=== PATIENT | male | born 1950 | race American Indian/Alaskan Native ===

== ENCOUNTER 2017-03-22 12:15 | Day surgery (SDC) | payer OTHER ==
[~2017-03-22 12:15] MED LIST: ANCEF/STERILE WATER 2 GM/20 ML IV NR
--- NOTE | 2017-03-22 12:42 | Anesthesia Consultation ---
Anesthesia Consult and Med Hx Date of service: 03/22/17 - Airway Anesthetic Teeth Evaluation: Good ROM Head & Neck: Adequate Mental/Hyoid Distance: Adequate Mallampati Class: Class III Intubation Access Assessment: Probably Good - Pulmonary Exam CTA: Yes - Cardiac Exam Cardiac Exam: RRR - Pre-Operative Health Status ASA Pre-Surgery Classification: ASA2 Proposed Anesthetic Plan: General - Pulmonary Hx Smoking: Yes (STOPPED X 25 YRS- 1/4PPD X 10 YRS) Hx Sleep Apnea: No (RAFAEL PRE SCREEN HIGH RISK) - Cardiovascular System Hx Hypertension: Yes (X 10 YRS) - Central Nervous System Hx Back Pain: Yes Hx Psychiatric Problems: No - Other Systems Hx Cancer: No - Additional Comments Anesthesia Medical History Comments: NAC.
--- NOTE | 2017-03-22 12:42 | Anesthesia Day of Surgery ---
Anesthesia Day of Surgery - Day of Surgery Patient Examined: Yes Patient H&P Reviewed: Yes Patient is NPO: Yes
[2017-03-22] MEDS ORDERED: VERSED IV PRN (12:43)
[2017-03-22] MEDS ORDERED: NACL 0.9% 1000 ML 1,000 ML IV SCH (13:00)
[2017-03-22] MEDS ORDERED: PEPCID IV NR (13:00)
[2017-03-22] MEDS ORDERED: NACL BACTERIOSTATIC INFILTRATI ONE (13:27)
[2017-03-22] MEDS ORDERED: XYLOCAINE MPF 2% ONE (13:51)
[2017-03-22] MEDS ORDERED: DIPRIVAN 10 MG/ML IV ONE (13:51)
[2017-03-22] MEDS ORDERED: DECADRON ONE (13:52)
[2017-03-22] MEDS ORDERED: DILAUDID ONE (13:53)
[2017-03-22] MEDS ORDERED: ZOFRAN ONE (14:12)
[2017-03-22] MEDS ORDERED: WATER FOR IRRIG STERILE IR ONE (14:25)
--- NOTE | 2017-03-22 14:32 | Short Stay Summary ---
Short Stay Documentation Date of service: 03/22/17 - History H&P: obtained from office - Allergies and Medications Current Medications: Allergies No Known Allergies Allergy (Verified 12/20/14 19:12) Home Medications Medication Instructions Recorded Confirmed Last Taken Type Lisinopril 5 mg PO DAILY 12/20/14 03/20/17 03/22/17 09:00 History Verapamil ER [Calan SR] 180 mg PO DAILY 09/16/16 03/20/17 03/22/17 09:00 History oxyCODONE /ACETAMINOPHEN [Percocet 1 tab PO Q6HR PRN #20 tablet 09/18/16 Unknown Rx 5/325] Aspirin [Lo-Dose Aspirin EC] 81 mg PO DAILY 03/20/17 03/22/17 3 Weeks Ago History ~03/01/17 Brimonidine 0.15% [Alphagan P 1 drops OP Q8H 03/20/17 03/22/17 03/22/17 06:00 History 0.15%] Latanoprost 0.005% [Xalatan 0.005%] 1 drop OP QPM 03/20/17 03/22/17 03/21/17 History Zolpidem [Ambien] 10 mg PO QHS 03/20/17 03/22/17 03/21/17 History Active Medications Cefazolin Sodium (Ancef/Sterile Water 2 Gm/20 Ml) 2 gm IV PREOP NR Stop: 03/22/17 23:59 Famotidine (Pepcid) 20 mg IV PREOP NR Stop: 03/22/17 23:00 Last Admin: 03/22/17 13:43 Dose: 20 mg Sodium Chloride (Nacl 0.9% 1000 Ml) 1,000 mls @ 42 mls/hr IV DIRECT SATYA Last Admin: 03/22/17 13:40 Dose: 42 mls/hr Midazolam HCl (Versed) 2 mg IV PREOP PRN PRN Reason: Agitation Last Admin: 03/22/17 13:46 Dose: 2 mg - Brief post op/procedure progress note Date of procedure: 03/22/17 Pre-op diagnosis: hematuria Post-op diagnosis: other (BPH) Procedure: cysto, rpg Anesthesia: GETA Surgeon: AIDA LAWSON Estimated blood loss: minimal Condition: stable - Hospital course Hospital course: toby & manish on chart - Disposition Condition at discharge: Stable Disposition: DC-01 TO HOME OR SELFCARE Short Stay Discharge Plan Follow up with: PAVAN ARREAGA MD [Primary Care Provider] - 7 Days
[2017-03-22] MEDS ORDERED: DILAUDID IV PRN (15:00)
--- NOTE | 2017-03-22 15:06 | Operative Report ---
PREOPERATIVE DIAGNOSIS: Hematuria. POSTOPERATIVE DIAGNOSES: Hematuria, benign prostatic hypertrophy. PROCEDURES: Cystoscopy, bilateral retrograde pyelograms. SURGEON: Todd Pierson M.D. ANESTHESIA: General. ESTIMATED BLOOD LOSS: Minimal. FLUIDS: Crystalloid. COMPLICATIONS: No complications. INDICATIONS: This 66-year-old gentleman referred by Dr. Daphne Ricci for evaluation of hematuria. 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 DESCRIPTION OF PROCEDURE: The patient was taken to the operative suite and placed in the supine position. After adequate general anesthesia, he was placed in a dorsal lithotomy position and prepped and draped in a sterile fashion. Pancystourethroscopy was performed with a 22-Kenyan Storz cystoscope, no urethral abnormalities. His prostate displayed mild trilobar prostatic obstruction. His bladder, no tumors or stones were noted. Bilateral retrograde pyelograms were obtained with an 8 Kenyan Sai catheter and 8 mL of contrast. No filling defects or obstruction. Rectal exam was benign. The patient tolerated the procedure well. He was extubated and taken to the recovery room. He will go home on [facility] and [place] and follow up in the office. JOB# [id number] GLORIA/EMELIA
[2017-03-22] MEDS ORDERED: NORCO 5/325 PO PRN (16:02)
[2017-03-22 17:14] VITALS: BP 129/73
--- NOTE | 2017-03-22 17:24 | Post Anesthesia Evaluation ---
- Post Anesthesia Evaluation Patient Participated: Yes Airway Patent: Yes Stable Respiratory Function: Yes Nausea/Vomiting: No Temp > 96.8F: Yes Pain Manageable: Yes Adequeate Hydration: Yes Anesthesia Complications: No Block Receding Appropriately: Not Applicable Patient on Ventilator: No
--- NOTE | 2017-03-23 07:36 | Fluoroscopy Report ---
RETROGRADE PYELOGRAM: History: Microscopic hematuria. Findings: Fluoroscopy was provided by radiology during retrograde pyelogram by Dr. Pierson. A fluoroscopic images were captured. There is adequate filling of the ureters and intrarenal collecting systems with no filling defects or anatomic abnormalities identified. Impression: No abnormality identified.
== END 2017-03-22 16:42 | disposition home or self-care (01) ==
LOC: OR 12:15
PROVIDERS: ATTEND Urology
DX: N40.1 Benign prostatic hyperplasia with lower urinary tract symptoms (principal); N39.0 Urinary tract infection, site not specified; I10 Essential (primary) hypertension; K21.9 Gastro-esophageal reflux disease without esophagitis; Z79.82 Long term (current) use of aspirin; Z79.899 Other long term (current) drug therapy; E78.00 Pure hypercholesterolemia, unspecified; Z98.49 Cataract extraction status, unspecified eye; Z98.890 Other specified postprocedural states; Z87.891 Personal history of nicotine dependence
CPT/HCPCS: 52005; 74420; A4217; C1758; J0690; J1100; J1170; J2250; J2405; J2704; J7030; Q9967

== ENCOUNTER 2020-10-12 01:13 | Emergency (ER) | payer MEDICARE, OTHER ==
[2020-10-12] MEDS ORDERED: HYDROcodone/ACETAMINOPHEN 5-325 MG TAB PO ONE (01:54)
[2020-10-12 02:52] VITALS: BP 135/70
--- NOTE | 2020-10-12 06:56 | Emergency Department Report ---
ED ENT HPI - General Chief complaint: Dental/Oral Stated complaint: TOOTHACHE Time Seen by Provider: 10/12/20 06:36 Source: patient Mode of arrival: Ambulatory Limitations: No Limitations - History of Present Illness Initial comments: 69-year-old -[place] male presents emerged department complaining of a couple day history of waxing waning dental pain to the left lower molar region and a dull throbbing fashion worse with palpation and chewing. He is unsure if he might have damaged one of his date to feelings of previous dental work areas so wanted to get it checked out ports no fever chills or sweats does respond to medication but he was unable to sleep last night which was causing him to come to emergency department today. MD complaint: tooth pain Location: tooth # ([id number]) Severity: mild, moderate Quality: dull Consistency: constant Worsens with: eating Context- Dental: history of dental caries, poor dental care - Related Data Home Medications Medication Instructions Recorded Confirmed Last Taken Lisinopril 5 mg PO DAILY 12/20/14 03/20/17 03/22/17 09:00 Verapamil ER [Calan SR] 180 mg PO DAILY 09/16/16 03/20/17 03/22/17 09:00 Aspirin [Lo-Dose Aspirin EC] 81 mg PO DAILY 03/20/17 03/22/17 3 Weeks Ago ~03/01/17 Brimonidine 0.15% [Alphagan P 1 drops OP Q8H 03/20/17 03/22/17 03/22/17 06:00 0.15%] Latanoprost 0.005% [Xalatan 0.005%] 1 drop OP QPM 03/20/17 03/22/17 03/21/17 Zolpidem (Nf) [Ambien] 10 mg PO QHS 03/20/17 03/22/17 03/21/17 Previous Rx's Medication Instructions Recorded Last Taken Type oxyCODONE /ACETAMINOPHEN [Percocet 1 tab PO Q6HR PRN #20 tablet 09/18/16 Unknown Rx 5/325] Acetaminophen/Codeine [Tylenol #3] 1 tab PO Q6H PRN #15 tab 10/12/20 Unknown Rx Amoxicillin [Amoxicillin TAB] 875 mg PO BID #20 tablet 10/12/20 Unknown Rx Chlorhexidine Mouthwash [Peridex] 15 ml MM BID #1 bottle 10/12/20 Unknown Rx Lidocaine Viscous 2% 5 ml MM Q3H PRN #120 udc 10/12/20 Unknown Rx Allergies Allergy/AdvReac Type Severity Reaction Status Date / Time No Known Allergies Allergy Verified 10/12/20 01:54 ED Dental HPI - General Chief complaint: Dental/Oral Stated complaint: TOOTHACHE Time Seen by Provider: 10/12/20 06:36 Source: patient Mode of arrival: Ambulatory Limitations: No Limitations - Related Data Home Medications Medication Instructions Recorded Confirmed Last Taken Lisinopril 5 mg PO DAILY 12/20/14 03/20/17 03/22/17 09:00 Verapamil ER [Calan SR] 180 mg PO DAILY 09/16/16 03/20/17 03/22/17 09:00 Aspirin [Lo-Dose Aspirin EC] 81 mg PO DAILY 03/20/17 03/22/17 3 Weeks Ago ~03/01/17 Brimonidine 0.15% [Alphagan P 1 drops OP Q8H 03/20/17 03/22/17 03/22/17 06:00 0.15%] Latanoprost 0.005% [Xalatan 0.005%] 1 drop OP QPM 03/20/17 03/22/17 03/21/17 Zolpidem (Nf) [Ambien] 10 mg PO QHS 03/20/17 03/22/17 03/21/17 Previous Rx's Medication Instructions Recorded Last Taken Type oxyCODONE /ACETAMINOPHEN [Percocet 1 tab PO Q6HR PRN #20 tablet 09/18/16 Unknown Rx 5/325] Acetaminophen/Codeine [Tylenol #3] 1 tab PO Q6H PRN #15 tab 10/12/20 Unknown Rx Amoxicillin [Amoxicillin TAB] 875 mg PO BID #20 tablet 10/12/20 Unknown Rx Chlorhexidine Mouthwash [Peridex] 15 ml MM BID #1 bottle 10/12/20 Unknown Rx Lidocaine Viscous 2% 5 ml MM Q3H PRN #120 udc 10/12/20 Unknown Rx Allergies Allergy/AdvReac Type Severity Reaction Status Date / Time No Known Allergies Allergy Verified 10/12/20 01:54 ED Review of Systems ROS: Stated complaint: TOOTHACHE Other details as noted in HPI Comment: All other systems reviewed and negative ED Past Medical Hx - Past Medical History Previous Medical History?: No Hx Hypertension: Yes (X 10 YRS) Hx GERD: Yes Hx HIV: No - Surgical History Past Surgical History?: No - Social History Smoking Status: Never Smoker Substance Use Type: None - Medications Home Medications: Home Medications Medication Instructions Recorded Confirmed Last Taken Type Lisinopril 5 mg PO DAILY 12/20/14 03/20/17 03/22/17 09:00 History Verapamil ER [Calan SR] 180 mg PO DAILY 09/16/16 03/20/17 03/22/17 09:00 History oxyCODONE /ACETAMINOPHEN [Percocet 1 tab PO Q6HR PRN #20 tablet 09/18/16 03/20/17 Unknown Rx 5/325] Aspirin [Lo-Dose Aspirin EC] 81 mg PO DAILY 03/20/17 03/22/17 3 Weeks Ago History ~03/01/17 Brimonidine 0.15% [Alphagan P 1 drops OP Q8H 03/20/17 03/22/17 03/22/17 06:00 History 0.15%] Latanoprost 0.005% [Xalatan 0.005%] 1 drop OP QPM 03/20/17 03/22/17 03/21/17 History Zolpidem (Nf) [Ambien] 10 mg PO QHS 03/20/17 03/22/17 03/21/17 History Acetaminophen/Codeine [Tylenol #3] 1 tab PO Q6H PRN #15 tab 10/12/20 Unknown Rx Amoxicillin [Amoxicillin TAB] 875 mg PO BID #20 tablet 10/12/20 Unknown Rx Chlorhexidine Mouthwash [Peridex] 15 ml MM BID #1 bottle 10/12/20 Unknown Rx Lidocaine Viscous 2% 5 ml MM Q3H PRN #120 udc 10/12/20 Unknown Rx ED Physical Exam - General Limitations: No Limitations General appearance: alert, in no apparent distress - Head Head exam: Present: atraumatic, normocephalic - Eye Eye exam: Present: normal appearance, PERRL, EOMI Pupils: Present: normal accommodation - ENT ENT exam: Present: mucous membranes moist, other (Tenderness to left lower molar region with palpation. There are dental caries noted. Minimal erythema adjacent to the area of concern airway is patent tongue uvula midline no exudate.) - Neck Neck exam: Present: normal inspection. Absent: lymphadenopathy - Respiratory Respiratory exam: Present: normal lung sounds bilaterally. Absent: respiratory distress - Cardiovascular Cardiovascular Exam: Present: regular rate, normal rhythm. Absent: systolic murmur, diastolic murmur, rubs, gallop - GI/Abdominal GI/Abdominal exam: Present: soft, normal bowel sounds - Rectal Rectal exam: Present: deferred - Extremities Exam Extremities exam: Present: normal inspection - Back Exam Back exam: Present: normal inspection - Neurological Exam Neurological exam: Present: alert, oriented X3 - Psychiatric Psychiatric exam: Present: normal affect, normal mood - Skin Skin exam: Present: warm, dry, intact, normal color. Absent: rash ED Course Vital Signs 10/12/20 02:21 Temperature 98.4 F Pulse Rate 52 L Respiratory 18 Rate Blood Pressure 135/70 O2 Sat by Pulse 95 Oximetry Critical care attestation.: If time is entered above; I have spent that time in minutes in the direct care of this critically ill patient, excluding procedure time. ED Disposition Clinical Impression: Dental caries, Dentalgia Disposition: TO HOME OR SELFCARE Is pt being admited?: No Does the pt Need Aspirin: No Condition: Stable Instructions: Preventive Dental Care, Adult, Acute Pain, Adult Prescriptions: Amoxicillin [Amoxicillin TAB] 875 mg PO BID #20 tablet Lidocaine Viscous 2% 5 ml MM Q3H PRN #120 udc PRN Reason: Pain, Moderate (4-6) Chlorhexidine Mouthwash [Peridex] 15 ml MM BID #1 bottle Acetaminophen/Codeine [Tylenol #3] 1 tab PO Q6H PRN #15 tab PRN Reason: Pain Referrals: [facility] [Outside] - 3-5 Days
== END 2020-10-12 06:40 | disposition home or self-care (01) ==
LOC: ED 01:13
DX: K02.9 Dental caries, unspecified (principal); I10 Essential (primary) hypertension; K21.9 Gastro-esophageal reflux disease without esophagitis; Z79.899 Other long term (current) drug therapy
CPT/HCPCS: 99282